=== PATIENT | male | born 1945 | race Caucasian/White ===

== ENCOUNTER 2020-10-12 18:14 | Observation (INO) | payer OTHER ==
--- NOTE | 2020-10-12 18:42 | RAD REPORT ---
EXAM DESCRIPTION: CT - Ct Stroke Brain Wo Cont - 10/12/2020 6:34 pm CLINICAL HISTORY: SLURRED SPEECH,LEFT SIDED WEAKNESS COMPARISON: No comparisons TECHNIQUE: All CT scans are performed using dose optimization technique as appropriate and may inclu de automated exposure control or mA/KV adjustment according to patient size. FINDINGS: No intracranial hemorrhage, hydrocephalus or extra-axial fluid collection.No areas of brai n edema or evidence of midline shift. Remote appearing right basal ganglia/ adams radiata infarct. C hronic small vessel ischemic changes are noted. The paranasal sinuses and mastoids are clear. The calvarium is intact. IMPRESSION: No acute intracranial abnormality. Remote appearing right adams radiata/basal ganglia lacunar infarct. MRI is more sensitive for detection of acute infarct.
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
[2020-10-12 19:08] LABS: Absolute Lymphocytes (CBC) 2.1 K/uL (0.7-4.9); Basophils % 0.2 % (0-1.3); Hematocrit 40.1 % (39.6-49.0); Lymphocytes % 17.4 % (15.3-44.8); MPV 8.2 fL (7.6-11.3); RBC Red Blood Cell Count 4.82 M/uL (4.33-5.43)
[2020-10-12 19:14] LABS: Potassium 3.6 mmol/L (3.5-5.1)
[2020-10-12 19:16] LABS: Protime INR 1.02
[2020-10-12] MEDS ORDERED: FOLIC ACID 5 MG/ML VIAL ONE (19:24)
[2020-10-12] MEDS ORDERED: NA CHLORIDE 0.9% 1,000 ML ONE (19:25)
[2020-10-12 19:29] LABS: C-Reactive Protein 50.8 mg/L (<3.00); Thyroid Stimulating Hormone 0.9 uIU/mL (0.360-3.740)
--- NOTE | 2020-10-12 19:52 | RAD REPORT ---
EXAM DESCRIPTION: RAD - Chest Single View - 10/12/2020 7:39 pm CLINICAL HISTORY: MD DISCRETION COMPARISON: Ct Stroke Brain Wo Cont dated 10/12/2020 FINDINGS: No evidence of edema or pneumonia. Mild cardiomegaly.No acute osseous abnormality. There i s blunting at the left costophrenic angle as well as some subpleural thickening laterally at the left lung base. IMPRESSION: No definite acute process identified. Blunting of the left costophrenic angle and subple ural opacity could represent a pleural effusion or pleural thickening. It is unlikely to be acute pro cess but is incompletely characterized.
[2020-10-12] MEDS ORDERED: METHYLPREDNISOLONE 125 MG INJ ONE (20:55)
[2020-10-12] MEDS ORDERED: HEPARIN 5000 UNIT/ML 1 ML VIAL ONE (20:55)
[2020-10-12] MEDS ORDERED: HEPARIN/D5W 25,000 UNIT/500 ML BAG IV ONE (20:56)
[2020-10-12] MEDS ORDERED: ASPIRIN 81 MG CHEWABLE TABLET ONE ×2 (20:56→21:20)
[2020-10-12] MEDS ORDERED: FAMOTIDINE 20 MG/2 ML VIAL IV ONE (20:56)
[2020-10-12] MEDS ORDERED: DIPHENHYDRAMINE 50 MG/ML VIAL ONE (20:56)
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
[2020-10-12] MEDS ORDERED: LEVALBUTEROL 1.25 MG/3 ML NEB NEB ONE (23:23)
[2020-10-12] MEDS ORDERED: ACETAMINOPHEN 500 MG TAB PO PRN (23:23)
[2020-10-12] MEDS ORDERED: ONDANSETRON 4 MG/2 ML VIAL IV PRN (23:23)
[2020-10-12] MEDS ORDERED: ATORVASTATIN 20 MG TAB PO SCH (23:23)
[2020-10-12] MEDS ORDERED: HEPARIN/D5W 25,000 UNIT/500 ML BAG IV SCH (23:23)
[2020-10-13 00:18] VITALS: BMI 25.6
[2020-10-13 05:57] LABS: Absolute Lymphocytes (CBC) 0.6 K/uL (0.7-4.9); Basophils % 0.7 % (0-1.3); Hematocrit 40.2 % (39.6-49.0); Lymphocytes % 6.7 % (15.3-44.8); MPV 8.3 fL (7.6-11.3)
[2020-10-13] MEDS: INSULIN -REGULAR HUMAN 50 UNIT/0.5 ML ML SQ SCH ×3 (06:00→12:00)
[2020-10-13] MEDS: METOPROLOL TAR 25 MG TAB PO SCH ×2 (06:00→06:35)
[2020-10-13 06:18] LABS: Albumin 3.6 g/dL (3.4-5.0); Bilirubin Total 0.4 mg/dL (0.2-1.0); Magnesium 2.1 mg/dL (1.8-2.4); Phosphorus 2.8 mg/dL (2.5-4.9); Protein, Total 8.3 g/dL (6.4-8.2); T4,Total 9.7 ug/dL (4.5-12.1)
[2020-10-13 06:19] LABS: Protime INR 0.97
--- NOTE | 2020-10-13 07:43 | RAD REPORT ---
EXAM DESCRIPTION: - CP - 10/13/2020 12:45 am CLINICAL HISTORY: CVA COMPARISON: No comparisons TECHNIQUE: Real-time sonographic evaluation of both carotid systems was performed. Doppler interroga tion was performed with waveform tracing bilaterally. FINDINGS: Normal high resistance waveforms are noted in both external carotid arteries. The common c arotid arteries and internal carotid arteries show normal low resistance waveforms. Mild scattered areas of noncalcified soft plaque. Peak systolic and end diastolic velocity values and the ICA/CCA ratios are in the non-hemodynamically significant range. Antegrade flow seen in both vertebral arteries. IMPRESSION: Mild noncalcified atherosclerotic plaque. No evidence of a hemodynamically significant stenosis.
[2020-10-13 08:23] VITALS: TEMP 97.9
[2020-10-13] MEDS ORDERED: FOLIC ACID 1 MG TABLET PO SCH (09:00)
[2020-10-13] MEDS ORDERED: ASPIRIN EC 81 MG TAB PO SCH (09:00)
[2020-10-13 09:02] LABS: Blood Morphology Comment NOT SEEN (NOT SEEN); Platelet Estimate ADEQ; Platelets, Giant FEW
--- NOTE | 2020-10-13 09:32 | RAD REPORT ---
EXAM DESCRIPTION: MRI - Brain W/Wo Cont - 10/13/2020 8:34 am CLINICAL HISTORY: CVA COMPARISON: <Comparisons> FINDINGS: Diffusion restriction in the right basal ganglia/ adams radiata corresponding with the ab normality seen on the CT. This has a similar distribution. Moderate chronic small vessel ischemic hermelinda nges. No acute intracranial hemorrhage. No mass effect or midline shift. Cerebral atrophy is noted. N o hydrocephalus. No abnormal enhancement is identified. Trace paranasal sinus thickening. No mastoid effusion. IMPRESSION: Acute infarct involving the right adams radiata/ basal ganglia. Moderate chronic small vessel ischemic changes.
--- NOTE | 2020-10-13 09:33 | RAD REPORT ---
EXAM DESCRIPTION: MRI - MRA Head Wo Cont - 10/13/2020 8:33 am CLINICAL HISTORY: CVA COMPARISON: MRA Head Wo Cont dated 10/13/2020No comparisons FINDINGS: The anterior circulation is intact. The middle cerebral arteries and anterior cerebral art eries are widely patent. Right dominant vertebral artery. The basilar artery and posterior circulatio n is intact. IMPRESSION: No stenosis, aneurysm, or occlusion involving the tribe Sofia.
--- NOTE | 2020-10-13 09:37 | RAD REPORT ---
EXAM DESCRIPTION: MRI - MRA Neck W/Wo Cont - 10/13/2020 8:34 am CLINICAL HISTORY: CVA COMPARISON: No comparisons FINDINGS: MRA of the neck with and without contrast. Widely patent bilateral common carotid, internal carotid, and external carotid arteries. No stenosis or dissection is identified. Mild right dominance of the vertebral artery. IMPRESSION: MRA of the neck is within normal limits.
[2020-10-13] MEDS ORDERED: ENOXAPARIN 40 MG/0.4 ML SQ SCH (11:00)
[2020-10-13 12:39] VITALS: O2SAT 98
[2020-10-13 12:42] VITALS: BP 128/69
--- NOTE | 2020-10-13 14:27 | RAD REPORT ---
EXAM DESCRIPTION: RAD - Barium Swallow Modified - 10/13/2020 2:16 pm CLINICAL HISTORY: dysphagia FINDINGS: LARYNGEAL PENETRATION CLEARED WITH SEQUENTIAL SIPS OF THIN BY CUP PHARYNGEAL RESIDUE VALLECULAR MILD RESIDUE WITH THIN BY TSP, THIN BY CUP, PUDDING BY CUP AND TABLET W ITH THIN BY CUP PHARYNGEAL RESIDUE PYRIFORM MILD WITH THIN BY TSP CURVATURE IN CERVICAL REGION C1-C6, Small Zenker's diverticulum suspected REDUCED EPIGLOTTIC DEFLECTION, POCKET CAUSED MILD TO MODERATE REGURGITATION BACK INTO PYRIFORMIS FLUORO TIME 1:28 16 fluoroscopic spot images obtained
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
[2020-10-13] MEDS ORDERED: INSULIN -REGULAR HUMAN 50 UNIT/0.5 ML ML SQ SCH (16:30)
--- NOTE | 2020-10-16 09:00 | ECHO ---
HEIGHT: 5 ft 5 in WEIGHT: 154 lb 0 oz DATE OF STUDY: 10/13/[address]: Roderick Peterson 2-DIMENSIONAL: YES M.MODE: YES DOPPLER: YES COLOR FLOW: YES TDS: PORTABLE: DEFINITY: BUBBLE STUDY: DIAGNOSIS: STROKE CARDIAC HISTORY: CATHERIZATION: SURGERY: PROSTHETIC VALVE: PACEMAKER: MEASUREMENTS (cm) DIASTOLIC (NORMALS) SYSTOLIC (NORMALS) IVSd 1.3 (0.6-1.2) LA Diam 3.6 (1.9-4.0) LVEF 52% LVIDd 4.6 (3.5-5.7) LVIDs 3.4 (2.0-3.5) %FS 26% LVPWd 1.3 (0.6-1.2) Ao Diam 2.7 (2.0-3.7) 2 DIMENSIONAL ASSESSMENT: RIGHT ATRIUM: NORMAL LEFT ATRIUM: NORMAL RIGHT VENTRICLE: NORMAL LEFT VENTRICLE: NORMAL TRICUSPID VALVE: MILD TRICUSPID REGURGITATION MITRAL VALVE: MILD MITRAL REGURGITATION PULMONIC VALVE: NORMAL AORTIC VALVE: MILD AORTIC INSUFFIENCY PERICARDIAL EFFUSION: NONE AORTIC ROOT: NORMAL LEFT VENTRICULAR WALL MOTION: UNABLE TO EVALUATE (POOR WINDOWS) DOPPLER/COLOR FLOW: SEE BELOW COMMENTS: POOR WINDOWS. OVERALL LEFT VENTRICULAR EJECTION FRACTION APPEARS NORMAL 50-55%. MILD MITRAL REGURGITATION, MILD TRICUSPID REGURGITATION, MILD AORTIC INSUFFIENCY. TECHNOLOGIST: JOVAN MARTINEZ
--- NOTE | 2020-10-17 06:15 | P.DS ---
Discharge Date: 10/13/20 Primary Care Provider: none Disposition: ROUTINE DISCHARGE Discharge Condition: GOOD Reason for Admission: CVA Brief History of Present Illness: Mr. Villa is a 75 yo M with history of R leg amputation who presents with 3 days of left sided facial droop and left arm weakness and numbness as well as slurred speech. He came today because symptoms did not improve. He does not report any medical conditions, and does not have a PCP. Found to be in rate controlled afib upon arrival. Failed bedside swallow screen. CT Head shows no acute intracranial abnormality, remote appearing right adams radiata/basal gang dhiraj lacunar infarct. CXR no definite acute process identified, blunting of the left costophrenic angle and subpleural opacity could represent a pleural effusion or pleural thickening, it is unlikely to be acute process but is incompletely characterized. Hospital Course: Patient is clinically doing well with no new complaints. Patient clinical symptoms are improving. Patient's MRI revealed an acute infarct of the MRI. Patient did physical therapy and speech therapy and clinically patient is doing well. Patient does not want to be in the hospital and wanted to go home. At this time, patient is stable for discharge home. Continue outpatient physical therapy. Vital Signs/Physical Exam: Temp Pulse Resp BP Pulse Ox 97.9 F 73 18 128/69 98 10/13/20 12:00 10/13/20 12:00 10/13/20 12:00 10/13/20 12:00 10/13/20 12:00 General: Alert, In no apparent distress, Oriented x3 Laboratory Data at Discharge: WBC 9.30 K/uL (4.3-10.9) D 10/13/20 05:20 Hgb 13.3 g/dL (13.6-17.9) L 10/13/20 05:20 Hct 40.2 % (39.6-49.0) 10/13/20 05:20 Plt Count 323 K/uL (152-406) 10/13/20 05:20 PT 11.1 SECONDS (9.5-12.5) 10/13/20 05:20 INR 0.97 10/13/20 05:20 APTT 29.7 SECONDS (24.3-36.9) 10/13/20 10:13 Sodium 138 mmol/L (136-145) 10/13/20 05:20 Potassium 4.0 mmol/L (3.5-5.1) 10/13/20 05:20 BUN 12 mg/dL (7-18) 10/13/20 05:20 Creatinine 0.97 mg/dL (0.55-1.3) 10/13/20 05:20 Glucose 194 mg/dL (74-106) H 10/13/20 05:20 Phosphorus 2.8 mg/dL (2.5-4.9) 10/13/20 05:20 Magnesium 2.1 mg/dL (1.8-2.4) 10/13/20 05:20 Total Bilirubin 0.4 mg/dL (0.2-1.0) 10/13/20 05:20 AST 13 U/L (15-37) L 10/13/20 05:20 ALT 21 U/L (12-78) 10/13/20 05:20 Alkaline Phosphatase 71 U/L (45-117) 10/13/20 05:20 Triglycerides 162 mg/dL (<150) H 10/13/20 05:20 Cholesterol 223 mg/dL (<200) H 10/13/20 05:20 HDL Cholesterol 36 mg/dL (40-60) L 10/13/20 05:20 Cholesterol/HDL Ratio 6.19 10/13/20 05:20 Home Medications: Aspirin [Aspirin EC 325 MG] 325 mg PO DAILY #30 tablet. 10/13/20 Atorvastatin Calcium [Lipitor*] 40 mg PO BEDTIME #30 tab 10/13/20 Metoprolol Tartrate [Lopressor*] 25 mg PO BID 6AM 6PM #60 tab 10/13/20 New Medications: Aspirin [Aspirin EC 325 MG] 325 mg PO DAILY #30 tablet. Atorvastatin Calcium [Lipitor*] 40 mg PO BEDTIME #30 tab Metoprolol Tartrate [Lopressor*] 25 mg PO BID 6AM 6PM #60 tab Physician Discharge Instructions: OK TO DC IV AND DC HOME FOLLOW-UP WITH PCP IN 1-2 WEEKS CALL ME AT [phone] IF ANY QUESTIONS REGARDING HOSPITAL STAY RETURN TO THE ER IF SYMPTOMS WORSEN FOLLOW-UP WITH NEUROLOGY IN 1-2 WEEKS Your prescriptions were sent to [facility] Diet: AHA Activity: Fall precautions Followup: NONE,NONE [Primary Care Provider] - Time spent managing pt's care (in minutes): 35
== END 2020-10-13 17:59 | disposition home or self-care (01) ==
LOC: ER 18:14 → ERHOLD 21:06 → INTOOBSV 21:06 → 2ND 23:00
PROVIDERS: ADMIT Hospitalist; ATTEND Hospitalist
DX: I63.9 Cerebral infarction, unspecified (principal); I48.91 Unspecified atrial fibrillation; I10 Essential (primary) hypertension; E78.5 Hyperlipidemia, unspecified; R29.706 NIHSS score 6; Z20.822 Contact with and (suspected) exposure to COVID-19; Z86.718 Personal history of other venous thrombosis and embolism; Z89.611 Acquired absence of right leg above knee; Z82.49 Family history of ischemic heart disease and other diseases of the circulatory system
CPT/HCPCS: 93005; 93306; 85025 ×2; 80048; 36415; 83735; 84100; 85610 ×2; 80061; 82947 ×3; 85730 ×3; 84436; 84443; 80053; 86140; 70450; 71045; 74230; 93880; 70553; 70544; 70549; 92611; 97161; 97530; 94760 ×2; 99285; U0003; A9577; J1200; J1644 ×2; J1650; J7030; J2930